=== PATIENT | female | born 1990 | race African-American/Black ===

== ENCOUNTER 2017-06-23 20:13 | Emergency (ER) | payer OTHER ==
[2017-06-23 20:19] VITALS: BP 131/85
--- NOTE | 2017-06-23 21:10 | ED Physician Documentation ---
PD HPI CHEST PAIN - Stated complaint Stated Complaint: CP/SOA - Chief complaint Chief Complaint: Cardiac - History obtained from History obtained from: Patient - History of Present Illness Timing - onset: Today Timing - duration: Seconds Timing - details: Now resolved, Intermittant Pain level max: 4 Pain level now: 0 Quality: Pain Location: Substernal Associated symptoms: No: Shortness of air Similar symptoms before: Has not had sx before Recently seen: Not recently seen - Additional information Additional information: c/o episodic palpitations with chest discomfort and lightheadedness. These episodes started this morning, have no apparent inciting/exacerbating/ ameliorating factors, but only last for 1 or 2 seconds at a time. Review of Systems Cardiac: reports: Chest pain / pressure, Palpitations Respiratory: reports: Dyspnea PD PAST MEDICAL HISTORY - Past Medical History Past Medical History: No - Present Medications Home Medications: Ambulatory Orders Medication Instructions Recorded Confirmed No Known Home Medications [No 06/23/17 06/23/17 Known Home Medications] - Allergies Allergies/Adverse Reactions: Allergies Allergy/AdvReac Type Severity Reaction Status Date / Time No Known Drug Allergies Allergy Verified 06/23/17 20:19 - Living Situation Living Arrangement: reports: At home - Social History Does the pt smoke?: No PD ED PE NORMAL - Vitals Vital signs reviewed: Yes - General General: Alert and oriented X 3, No acute distress, Well developed/nourished - Neck Neck: Supple, no meningeal sign - Cardiac Cardiac: RRR, No murmur, No gallop, No rub - Respiratory Respiratory: No respiratory distress, Clear bilaterally Results - Vitals Vitals: Vital Signs - 24 hr 06/23/17 20:16 Temperature 36.2 C L Heart Rate 90 Respiratory 14 Rate Blood Pressure 131/85 H O2 Saturation 100 Oxygen O2 Source Room air - EKG (time done) No standard instances Rate: Rate (enter#) (75) Rhythm: NSR Martin: Normal Intervals: Normal AR QRS: Normal Ischemia: Normal ST segments PD MEDICAL DECISION MAKING - ED course Complexity details: considered differential, d/w patient ED course: The brevity of patient's symptoms are suggestive of PACs or PVCs; she is asymptomatic at the time of my evaluation of her, her EKG is unremarkable as are her vital signs (aside from a borderline DBP), and thus no further emergent testing recommended at this time. Departure - Departure Disposition: Home, Self Care Clinical Impression: Heart palpitations Condition: Good Instructions: ED Palpitations Follow-Up: BE[facility] [Primary Care Provider] - Discharge Date/Time: 06/23/17 21:26
== END 2017-06-23 21:26 | disposition home or self-care (01) ==
LOC: ED 20:13
DX: R00.2 Palpitations (principal)
CPT/HCPCS: 93005; 99282; 99283